=== PATIENT | female | born 1995 ===

== ENCOUNTER 2019-03-07 09:14 | Inpatient (IN) | payer OTHER ==
[~2019-03-07] VITALS: Ht 154.9 cm; Wt 2.7 kg
[2019-03-07] MEDS ORDERED: PRENATAL TABLE1 EAC1 PO (09:36)
== END 2019-03-10 15:45 | disposition home or self-care (01) | DRG 785 ==
LOC: OB/GYN 09:14 → LDR 09:14 → O/R 16:39 → OB/GYN 18:05
PROVIDERS: ADMIT Obstetrics & Gynecology
PROC: 0UL70ZZ Occlusion of Bilateral Fallopian Tubes, Open Approach (ICD-10-PCS; 2019-03-07)
PROC: 4A1HXCZ Monitoring of Products of Conception, Cardiac Rate, External Approach (ICD-10-PCS; 2019-03-07)
PROC: 10D00Z1 Extraction of Products of Conception, Low, Open Approach (ICD-10-PCS; principal; 2019-03-07 15:45)
DX: O82 Encounter for cesarean delivery without indication (principal); Z3A.39 39 weeks gestation of pregnancy; Z37.0 Single live birth; Z30.2 Encounter for sterilization